=== PATIENT | male | born 1965 | race Caucasian/White ===

== ENCOUNTER 2017-02-06 22:29 | Emergency (ER) | payer OTHER ==
[2017-02-06] MEDS ORDERED: Ketorolac 30 MG/ML SDV IVPUSH ONE (22:40)
[2017-02-06] MEDS ORDERED: Sodium Chloride 0.9% 10 ML Syringe FLUSH PRN (22:40)
[2017-02-06] MEDS ORDERED: Ondansetron 4 MG/2 ML SDV IVPUSH ONE (22:40)
[2017-02-06] MEDS ORDERED: Sodium Chloride 0.9% 1,000 ML IV SCH (22:45)
[2017-02-06 22:58] VITALS: BP 148/72
[2017-02-06] MEDS ORDERED: Ketorolac 30 MG/ML SDV ONE (23:19)
[2017-02-06] MEDS ORDERED: Acetaminophen/HYDROcodone 325-5 MG Tab PO ONE (23:58)
[2017-02-07] MEDS ORDERED: HYDROmorphone 2 MG/ML SDV IVPUSH ONE (00:04)
--- NOTE | 2017-02-07 04:58 | ER ---
DATE SEEN: 02/06/2017 REASON FOR VISIT: Left flank pain. HISTORY OF PRESENT ILLNESS: A 51-year-old male with sudden onset left flank pain, radiates to the groin, moderate in intensity. Nothing seems to help. Associated with some nausea. Colicky. REVIEW OF SYSTEMS: No hematuria, no fever. PAST MEDICAL HISTORY: Hypertension. ALLERGIES: Penicillin. PHYSICAL EXAMINATION: GENERAL: Pale but not in distress. VITAL SIGNS: Blood pressure initially 150 systolic. ABDOMEN: Soft with tenderness in left flank. No rebound or rigidity. CHEST: Clear. CARDIOVASCULAR: Normal. LABORATORY: Urine was negative. CBC showed a white cell count of 13.[address] abdomen and pelvis revealed kidney stone 4 mm in size. There was also some prostate enlargement and diverticulosis. IMPRESSION: Ureteric calculi. PLAN: 1 L of normal saline, Zofran, and ketorolac. I sent him home on hydrocodone tablet t.i.d. p.r.n. FOLLOWUP: Follow up tomorrow with Renée Kaur. TIME SEEN: 2300 hours. /[id number] HAL/ARIA
== END 2017-02-07 00:30 | disposition home or self-care (01) ==
LOC: FB.ED 22:29
DX: N13.2 Hydronephrosis with renal and ureteral calculous obstruction (principal); I10 Essential (primary) hypertension; Z88.0 Allergy status to penicillin
CPT/HCPCS: 36415; 74176; 80048; 81001; 85025; 96361; 96374; 96375; 99284; A9270; J1170; J1885; J2405; J7040